=== PATIENT | female | born 1985 | race Two or more races ===

== ENCOUNTER 2025-03-06 21:48 | Emergency (ER) | payer BC, OTHER ==
[~2025-03-06] VITALS: Ht 162.6 cm; Wt 92.7 kg
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
[2025-03-07 01:07] VITALS: BP 128/74; PULSE 58; RESP 12; TEMP 97.9
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
[2025-03-07 01:30] VITALS: O2SAT 98
[2025-03-07] MEDS ORDERED: IBUP-1456 PO (01:40)
[2025-03-07] MEDS ORDERED: TIZA-142 PO (01:40)
== END 2025-03-07 02:06 | disposition home or self-care (01) ==
LOC: ER 21:48
DX: S13.4XXA Sprain of ligaments of cervical spine, initial encounter (principal); S46.912A Strain of unspecified muscle, fascia and tendon at shoulder and upper arm level, left arm, initial encounter; S46.911A Strain of unspecified muscle, fascia and tendon at shoulder and upper arm level, right arm, initial encounter; V89.2XXA Person injured in unspecified motor-vehicle accident, traffic, initial encounter; Y93.89 Activity, other specified; Y92.89 Other specified places as the place of occurrence of the external cause; Y99.8 Other external cause status
CPT/HCPCS: 72040